=== PATIENT | female | born 1975 | race Caucasian/White ===

== ENCOUNTER 2017-09-23 16:39 | Emergency (ER) | payer MEDICAID ==
[2017-09-23 18:22] VITALS: BP 142/76
== END 2017-09-23 18:22 | disposition home or self-care (01) ==
LOC: ED 16:39
DX: S29.012A Strain of muscle and tendon of back wall of thorax, initial encounter (principal); S20.211A Contusion of right front wall of thorax, initial encounter; V49.49XA Driver injured in collision with other motor vehicles in traffic accident, initial encounter; W22.10XA Striking against or struck by unspecified automobile airbag, initial encounter; Y99.8 Other external cause status; Y93.89 Activity, other specified; Y92.411 Interstate highway as the place of occurrence of the external cause

== ENCOUNTER 2020-12-19 18:25 | Emergency (ER) | payer MEDICAID, SELFPAY ==
[~2020-12-19] VITALS: Ht 152.4 cm; Wt 72.6 kg
[2020-12-19 18:27] VITALS: Ht 152.4 cm; Wt 72.6 kg
[2020-12-19 19:57] LABS: BASOPHIL % 0.2 % (0.2-1.3); PLATELET COUNT 227 x10^3mcL (179-408); RED CELL DISTRIBUTION WIDTH 13.8 % (12.3-17.7)
[2020-12-19 20:55] LABS: CALCIUM 8.4 mg/dL (8.5-10.1); CARBON DIOXIDE 25.6 mmol/L (21-32); CHLORIDE SERUM 100 mmol/L (98-107); CREATININE SERUM 0.7 mg/dL (0.6-1.0); GFR1 > 60 mL/min; GLUCOSE SERUM 108 mg/dL (74-106); POTASSIUM SERUM 3.4 mmol/L (3.5-5.1); SODIUM SERUM 135 mmol/L (136-145)
[2020-12-19 20:59] LABS: ALBUMIN 3.6 g/dL (3.4-5.0); ALKALINE PHOSPHATASE 71 U/L (46-116); ALT/SGPT 37 U/L (14-59); AST/SGOT 29 U/L (15-37); BILIRUBIN TOTAL 0.2 mg/dL (0.20-1.00); LIPASE 176 IU/L (73-393); TOTAL PROTEIN, SERUM 7.4 g/dL (6.4-8.2)
[2020-12-19 21:09] VITALS: BP 108/67
== END 2020-12-19 21:09 | disposition home or self-care (01) ==
LOC: ED 18:25
PROVIDERS: Student in an Organized Health Care Education/Training Program
DX: J18.1 Lobar pneumonia, unspecified organism (principal); Z98.51 Tubal ligation status; Z20.828 Contact with and (suspected) exposure to other viral communicable diseases
CPT/HCPCS: Q0162; U0003